=== PATIENT | male | born 1950 ===

== ENCOUNTER → 2020-02-12 | Outpatient (CLI) | payer MEDICARE | LOC: LAB SHORT 11:07 → PLD 11:07 | DX: D48.5 Neoplasm of uncertain behavior of skin (principal) | CPT/HCPCS: 88305 ==

== ENCOUNTER 2022-06-16 12:08 | Inpatient (IN) | payer MEDICARE ==
[~2022-06-16] VITALS: Ht 182.9 cm; Wt 61.5 kg
[2022-06-16 13:13] LABS: BASOPHILS ABSOLUTE AUTO 0.09 K/mm3 (0.00-0.23); BASOPHILS PERCENT AUTO 1 % (0-2); EOSINOPHILS PERCENT AUTO 1 % (0-6); Hemoglobin 12.5 g/dL (13.5-17.5); IMMATURE GRAN ABSOLUTE AUTO 0.07 K/mm3 (0.00-0.10); IMMATURE GRAN PERCENT AUTO 1 % (0-1); LYMPHOCYTES ABSOLUTE AUTO 1.17 K/mm3 (0.84-5.20); LYMPHOCYTES PERCENT AUTO 9 % (21-46); MONOCYTES ABSOLUTE AUTO 1.53 K/mm3 (0.16-1.47); MONOCYTES PERCENT AUTO 12 % (4-13); Mean Corpuscular HGB 31.2 pg (26.0-34.0); Mean Corpuscular HGB Conc 33.8 g/dL (31.5-36.5); Mean Corpuscular Volume 92 fL (80-100); NEUTROPHILS ABSOLUTE AUTO 10.25 K/mm3 (1.96-9.15); NEUTROPHILS PERCENT AUTO 78 % (41-73); Platelet Count 428 K/mm3 (150-400); RDW Coefficient Variation 13.2 % (11.7-14.2); RDW Standard Deviation 45.3 fL (35.1-46.3); Red Blood Cell Count 4.01 M/mm3 (4.30-5.90); White Blood Cell Count 13.21 K/mm3 (4.00-11.30)
[2022-06-16 13:38] LABS: Albumin, Blood 3.3 g/dL (3.4-5.0); Albumin/Globulin Ratio 0.9 (0.8-1.8); Bilirubin, Total 0.5 mg/dL (0.1-1.0); Bun/Creatinine Ratio 15.3 (12.0-20.0); Calcium, Blood 9.1 mg/dL (8.5-10.1); Creatinine, Blood 1.31 mg/dL (0.60-1.20); Globulin, Blood 3.6 g/dL (2.2-4.0); Potassium, Blood 3.8 mmol/L (3.5-5.5); Total Protein, Blood 6.9 g/dL (6.4-8.2)
[2022-06-16 14:12] LABS: Source, Urine Clean Catch
[2022-06-16 14:50] LABS: Appearance, Urine Clear (Clear); Bilirubin, Urine Neg (Neg); Blood, Urine 3+ (Neg); Color, Urine Yellow (P-Yellow); Glucose Qualitative, Urine Neg (Neg); Ketones, Urine Neg (Neg); Leukocyte Esterase, Urine 1+ (Neg); Nitrite, Urine Neg (Neg); Protein, Urine 2+ (Neg); Urobilinogen, Urine NORM (Normal)
[2022-06-16 15:01] LABS: Bacteria Few /hpf; Calcium Oxalate Crystals Rare /hpf; Squamous Epithelial Cells Few /hpf (Few)
[2022-06-16 20:04] LABS: C DIFFICILE DNA NEGATIVE (Negative)
[2022-06-16 23:16] LABS: Albumin, Blood 2.9 g/dL (3.4-5.0); Albumin/Globulin Ratio 0.9 (0.8-1.8); Bilirubin, Total 0.6 mg/dL (0.1-1.0); Bun/Creatinine Ratio 14.6 (12.0-20.0); Calcium, Blood 8.5 mg/dL (8.5-10.1); Creatinine, Blood 1.3 mg/dL (0.60-1.20); Globulin, Blood 3.3 g/dL (2.2-4.0); Phosphorus, Blood 2.7 mg/dL (2.5-4.9); Total Protein, Blood 6.2 g/dL (6.4-8.2)
--- NOTE | 2022-06-16 23:23 | NUR ---
PATIENT IS A NEW ER ADMIT. INDEPENDENT FROM RNEY TO BED. ALERT AND ORIENTED. DENIES CHEST PAIN, SOB, AND N/V. COLOSTOMY PRESENT AND REPORTS SELF CARE. NPO POST MIDNIGHT. TELEMETRY PLACED AND TECH REPORTS NSR @ 70. ORIENTED TO ROOM AND CALL LIGHT SYSTEM. REPORTED MINIMAL PAIN 3/10 TO LLQ AND BACK HAVING RECEIVED IV FENTANYL 50 MCG IN ED PRIOR TO ADMIT. WATCHING TV AFTER ASSESSMENT. CALL LIGHT IN REACH. BED IN LOWEST POSITION. WCTM.
--- NOTE | 2022-06-16 23:58 | NUR ---
PROVIDER CONSULT CALLED IN DR BRANDEE WARD ([facility]) ANSWERING SERVICE. NORMAL SALINE INFUSING AT 75 mL/HR X ONE BAG.
--- NOTE | 2022-06-17 04:43 | NUR ---
SHIFT SUMMARY PATIENT HAD NO ACUTE CHANGES. AXOX 4 AND INDEPENDENT IN ROOM. NPO POST MIDNIGHT. CONSULT CALLED INTO DR BRANDEE WARD ANSWERING SERVICE. COLOSTOMY SELF CARE INTACT. PIV REMAINS INTACT. NS INFUSING AT 75 mL/HR X ONE. REPORTED LLQ/BACK PAIN X ONE AND IV FENTANYL 50 MCG GIVEN PER EMAR. DENIES CHEST PAIN, SOB, AND N/V. ON TELEMETRY NSR 70. HYPERTENSIVE ON ADMIT. ON ROOM AIR. SLEPT MOST OF THE SHIFT. CALL LIGHT IN REACH. BED IN LOWEST POSITION. WILL CONTINUE TO MONITOR UNTIL DAY SHIFT NURSE ASSUMES CARE.
[2022-06-17 11:35] LABS: Adenovirus F 40/41 Not Detected (NOT DETECT); Astrovirus Not Detected (NOT DETECT); Campylobacter Sp Not Detected (NOT DETECT); Cryptosporidium Not Detected (NOT DETECT); Cyclospora Cayetanensis Not Detected (NOT DETECT); E. Coli O157 Not Detected (NOT DETECT); Entamoeba Histolytica Not Detected (NOT DETECT); Enteroaggregative E. coli-EAEC Not Detected (NOT DETECT); Enteropathogenic E. coli-EPEC Not Detected (NOT DETECT); Enterotoxigenic E. coli-ETEC Not Detected (NOT DETECT); Giardia Lamblia Not Detected (NOT DETECT); Norovirus GI/GII Not Detected (NOT DETECT); Plesiomonas Shigelloides Not Detected (NOT DETECT); Rotavirus A Not Detected (NOT DETECT); Salmonella Sp Not Detected (NOT DETECT); Sapovirus Not Detected (NOT DETECT); Shiga Toxin-prod E. coli-STEC Not Detected (NOT DETECT); Shigella/Enteroin E. coli-EIEC Not Detected (NOT DETECT); Vibrio Cholerae Not Detected (NOT DETECT); Vibrio Sp Not Detected (NOT DETECT); Yersinia Enterocolitica Not Detected (NOT DETECT)
--- NOTE | 2022-06-17 17:51 | NUR ---
DAYSHIFT SUMMARY Patient received 1 bag of IV fluids, and IV Rocephin today. Managed pain with IV Fentynal & PO Tramadol. Continuing supportive care, awaiting possible nephrostomy tube this weekend. Vitals stable.
--- NOTE | 2022-06-18 05:11 | NUR ---
SHIFT SUMMARY 71 YR M ADMITTED ON 06/17/22 FOR KIDNEY STONES. NO ACUTE CHANGES THIS SHIFT. PT MEDICATED ONCE THIS SHIFT FOR PAIN AND HAS HAD NO OTHER C/O PAIN OR DISCOMFORT. HE HAS A COLOSTOMY WHICH HE MANAGES HIMSELF. POSSIBLE NEPHROSTOMY TUBE PLACEMENT THIS WEEKEND. HE APPEARS TO HAVE RESTED WELL THIS SHIFT. HE IS INDEPENDANT IN THE ROOM AND IS PLEASANT AND COOPERATIVE WITH CARE.
[2022-06-18 06:03] LABS: Bun/Creatinine Ratio 16.2 (12.0-20.0); Calcium, Blood 8.6 mg/dL (8.5-10.1); Creatinine, Blood 1.11 mg/dL (0.60-1.20); Potassium, Blood 4.4 mmol/L (3.5-5.5)
--- NOTE | 2022-06-18 17:19 | NUR ---
PT IS A/OX4, PLEASANT AND COOPERATIVE. THE PT IS UP IND IN HIS ROOM TO THE BATHROOM. PT HAS A COLOSTOMY THAT HE CARE FOR HIMSELF. THE PT CONTINUES TO REPORT ABD AND FLANK PAIN. PT WAS MEDICATED FOR PAIN X1 SO FAR THIS SHIFT PER HIS REQUEST. PTS WAS AT THE BEDISIDE FOR PART OF THE DAY. CALL LIGHT IN REACH. WILL CONTINUE TO MONITOR AND ASSESS FOR CHANGES
--- NOTE | 2022-06-19 03:24 | NUR ---
SHIFT SUMMARY NOC PT A/O X 4. PLEASANT AND COOPERATIVE WITH CARE. PT HAS COLOSTOMY IN PLACE AND SELF MANGAGES. PAIN HAS BEEN MANAGED WELL WITHOUT HAVING TO GIVE PN RX. PT HADC/O OF FEELING LIKE HAVING TO HAVE A BM BUT REFUSED BOWEL CARE RX AND PRUNE JUICE. PT IS AWAITING A BED AT A FACILITY FOR UROLOGY AND WILL HAVE A NEPHROSTOMY TUBE PLACED BY DR. WARD ON 06/19/22. PT IS CURRENTLY RESTING WITH BED IN LOWEST POSITION, AND CALL LIGHT WITHIN REACH. TM.
[2022-06-19 05:33] LABS: Hematocrit 35.9 % (37.0-53.0); Mean Corpuscular HGB 30.8 pg (26.0-34.0); Mean Corpuscular HGB Conc 33.4 g/dL (31.5-36.5); Mean Corpuscular Volume 92 fL (80-100); Mean Platelet Volume 10.4 fL (9.1-12.4); Platelet Count 460 K/mm3 (150-400); RDW Coefficient Variation 13.2 % (11.7-14.2); Red Blood Cell Count 3.89 M/mm3 (4.30-5.90); White Blood Cell Count 9.72 K/mm3 (4.00-11.30)
[2022-06-19 05:44] LABS: Bun/Creatinine Ratio 19.2 (12.0-20.0); Calcium, Blood 8.8 mg/dL (8.5-10.1); Creatinine, Blood 1.04 mg/dL (0.60-1.20); Potassium, Blood 4.2 mmol/L (3.5-5.5)
--- NOTE | 2022-06-19 18:07 | NUR ---
SHIFT SUMMARY- PT IS ALERT AND ORIENTED X 4. R/A NPO AT MIDNIGHT. SCHEDULED FOR NEPHROLOGY PROCEDURE TOMORROW. GAVE 1 PRN FOR PAIN. SEE EMAR. INDEPENDENT IN THE ROOM. UNDERSTAND LIMITATIONS. BED IS IN THE LOWEST POSITION WITH CALL LIGHT IN REACH
[2022-06-20 06:26] LABS: Bun/Creatinine Ratio 21.7 (12.0-20.0); Calcium, Blood 8.7 mg/dL (8.5-10.1); Creatinine, Blood 0.97 mg/dL (0.60-1.20); Potassium, Blood 4.7 mmol/L (3.5-5.5)
--- NOTE | 2022-06-20 15:08 | NUR ---
CALLED DR MENEZES- PT SPOKE TO THIS RN ABOUT HIS WISHES AND CONVEYED THAT HE WISHED TO NOT BE RESUSITATED IN THE EVENT THAT HIS HEART SHOULD STOP, HE WANTS STAFF TO "LEAVE HIM BE." CALLED DR MENEZES HE IS AWARE. PT IS CONCERNED WITH NOT BEING ABLE TO EAT. PROVIDED A DIET ORDER FOR AFTER HIS PROCEDURE. PT SHOULD HAVE A DINNER TRAY AFTER HIS PROCEDURE.
--- NOTE | 2022-06-20 18:06 | NUR ---
SHIFT SUMMARY- PT ALERT AND ORIENTED, INDEPENDENT IN THE ROOM. PT IS POST PLACEMENT OF A LEFT NEPHROSTOMY. PINK URINE OUPUT, BAG STABILIZED BY ATTACHING TO PT GOWN. PT NOW HAS A DIET ORDER, CURRENTLY SITTING UP IN BED EATING. POST OP VITALS ORDERED. PT BP HAS BEEN TRENDING DOWN SINCE ARRIVAL BACK TO MED FLOOR FROM SURGERY. PT ON ROOM AIR NO S&S OF DISTRESS, DENIES THE NEED FOR PAIN MEDICATION. WILL CTM AND PASS ON TO NIGHT RN IN BEDSIDE REPORT.
--- NOTE | 2022-06-21 04:00 | NUR ---
SHIFT MOSTLY UNREMARKABLE. PAIN FROM NEW NEPHROSTOMY IS WELL MANAGED ON CURRENT MEDICATION REGIMEN. PT ABLE TO SLEEP SPORADICALLY. PT HAS HAD NO COMPLAINTS OVER COURSE OF SHIFT. CALL LIGHT LEFT WITHIN REACH.
[2022-06-21 05:00] LABS: Hemoglobin 11.9 g/dL (13.5-17.5); Mean Corpuscular HGB 30.7 pg (26.0-34.0); Mean Corpuscular HGB Conc 33.1 g/dL (31.5-36.5); Mean Corpuscular Volume 93 fL (80-100); Mean Platelet Volume 9.7 fL (9.1-12.4); Platelet Count 531 K/mm3 (150-400); RDW Coefficient Variation 13.2 % (11.7-14.2); RDW Standard Deviation 45.1 fL (35.1-46.3); Red Blood Cell Count 3.88 M/mm3 (4.30-5.90); White Blood Cell Count 9.39 K/mm3 (4.00-11.30)
[2022-06-21 06:44] LABS: Bun/Creatinine Ratio 24.6 (12.0-20.0); Calcium, Blood 8.7 mg/dL (8.5-10.1); Creatinine, Blood 0.94 mg/dL (0.60-1.20); Potassium, Blood 4.2 mmol/L (3.5-5.5)
--- NOTE | 2022-06-21 09:34 | NUR ---
DR. MENEZES NOTIFIED -9 BEAT [facility], PT DENIES SYMPTOMS
[2022-06-21] MEDS ORDERED: AMLO10 PO (11:25)
[2022-06-21] MEDS ORDERED: HYDCHL25 PO (11:26)
[2022-06-21] MEDS ORDERED: TRAM50 PO (11:26)
--- NOTE | 2022-06-21 11:50 | NUR ---
DISCHARGE PT A&OX4 HARD SCRIPT PROVIDED TO PT AND MEDS FAXED INTO [facility]. PT SISTER TO PROVIDE TRANSPORT. NEPHROSTOMY DRAINING RED THIN LIQUID. PT DENIES PAIN. VSS. COMPUTER ASSISTANT DCED TELE AND IV. WC ESCORT TO [facility].
== END 2022-06-21 11:53 | disposition home or self-care (01) | DRG 872 ==
LOC: ER 12:08 → MEDS 12:09
PROVIDERS: Emergency Medicine; Internal Medicine; Student in an Organized Health Care Education/Training Program; ADMIT Internal Medicine
PROC: 3E03329 Introduction of Other Anti-infective into Peripheral Vein, Percutaneous Approach (ICD-10-PCS; principal; 2022-06-17)
PROC: 0T9430Z Drainage of Left Kidney Pelvis with Drainage Device, Percutaneous Approach (ICD-10-PCS; 2022-06-20)
DX: A41.9 Sepsis, unspecified organism (principal); N13.2 Hydronephrosis with renal and ureteral calculous obstruction; I10 Essential (primary) hypertension; R19.7 Diarrhea, unspecified; M79.89 Other specified soft tissue disorders; Z28.21 Immunization not carried out because of patient refusal; Z93.3 Colostomy status; Z88.6 Allergy status to analgesic agent; Z88.8 Allergy status to other drugs, medicaments and biological substances; Z85.038 Personal history of other malignant neoplasm of large intestine
CPT/HCPCS: 36415; 50432; 74177; 76937; 80048; 80053; 81001; 83690; 83735; 84100; 85025; 85027; 87015; 87045; 87046; 87086; 87177; 87205; 87209; 87493; 87507; 87899; 93971; 96365-59; 96375; 96376; 99152; 99153; 99285-25; A9270; C1729; C1769; C1894; G0378; J0360; J0696; J2250; J3010; J3475; J7030; J7040; Q9967

== ENCOUNTER → 2023-05-24 | Outpatient (CLI) | payer MEDICARE ==
[~2023-05-24] MED LIST: AMLO10 PO; HYDCHL25 PO; TRAM50 PO
== END | disposition home or self-care (01) ==
LOC: PLD 08:32 → LAB SHORT 08:32
DX: L72.8 Other follicular cysts of the skin and subcutaneous tissue (principal)
CPT/HCPCS: 88304

== ENCOUNTER → 2023-06-07 | Outpatient (CLI) | payer MEDICARE | END | disposition home or self-care (01) | LOC: LAB SHORT 13:40 → LAB 13:40 | DX: L03.115 Cellulitis of right lower limb (principal) | CPT/HCPCS: 87070; 87205 ==